=== PATIENT | female | born 1965 ===

== ENCOUNTER 2018-05-11 06:05 | Day surgery (SDC) | payer OTHER ==
[~2018-05-11 06:05] MED LIST: CLARITIN10 M1 PO; DULERA 100 MCG/13 GM IH; PRILOSEC10 MG PO; SINGULAIR10 MG PO; VENTOLIN HFA18 GM IH; WELLBUTRIN SR100 MG PO
[2018-05-11] MEDS ORDERED: RECTICARE30 GM TOP (09:31)
[2018-05-11] MEDS ORDERED: PERCOCET 5-3251 EACH PO (09:31)
== END 2018-05-11 17:30 | disposition home or self-care (01) ==
LOC: CIR.AMB 06:05
DX: K64.8 Other hemorrhoids (principal); K64.4 Residual hemorrhoidal skin tags